=== PATIENT | female | born 1965 | race Caucasian/White ===

== ENCOUNTER 2023-08-31 08:31 | Day surgery (SDC) | payer BC ==
[~2023-08-31 08:31] MED LIST: Sodium Chloride 0.9% 10 ML Syringe FLUSH PRN; Sodium Chloride 0.9% 2.5 ML Syringe FLUSH PRN; Sodium Chloride 0.9% 20 ML SDV IV PRN
[2023-08-31] MEDS: Lactated Ringers 1,000 ML IV SCH (08:53)
[2023-08-31] MEDS ORDERED: propofoL 50 ML ONE (09:13)
[2023-08-31] MEDS ORDERED: Lidocaine 2% 5 ML SDV ONE (09:38)
[2023-08-31] MEDS ORDERED: Glycopyrrolate 0.2 MG/ML SDV ONE (09:38)
[2023-08-31] MEDS ORDERED: Ondansetron 4 MG/2 ML SDV ONE (09:38)
== END 2023-08-31 10:26 | disposition home or self-care (01) ==
LOC: MW.SDS 08:31
PROVIDERS: ATTEND Surgery
DX: Z12.11 Encounter for screening for malignant neoplasm of colon (principal); M81.0 Age-related osteoporosis without current pathological fracture; Z79.899 Other long term (current) drug therapy
CPT/HCPCS: 45378; J2405; J2704; J3490; J7120